=== PATIENT | male | born 1950 | race Two or more races ===

== ENCOUNTER 2021-11-24 18:46 | Emergency (ER) | payer OTHER ==
[~2021-11-24] VITALS: Ht 177.8 cm; Wt 113.4 kg
== END 2021-11-24 21:25 | disposition home or self-care (01) ==
LOC: ER 18:46
DX: S81.821A Laceration with foreign body, right lower leg, initial encounter (principal); W16.032A Fall into swimming pool striking wall causing other injury, initial encounter; Y93.89 Activity, other specified; Y92.89 Other specified places as the place of occurrence of the external cause; Y99.8 Other external cause status